=== PATIENT | female | born 1975 | race African-American/Black ===

== ENCOUNTER 2021-09-23 13:38 | Emergency (ER) | payer OTHER ==
[~2021-09-23] VITALS: Ht 160 cm; Wt 112.5 kg
[2021-09-23 14:56] LABS: BASOPHIL 0.6 % (0-2); EOSINOPHIL 1.8 % (0-5); HCT 41.3 % (37.0-47.0); HGB 13.8 g/dl (12.5-16.0); LYMPHOCYTE 24.2 % (15-48); MCH 28.3 pg (25.0-31.0); MCHC 33.4 g/dL (32.0-36.0); MCV 84.8 fL (78.0-100.0); MONOCYTE 7.7 % (0-12); MPV 11.4 fL (6.0-9.5); NEUTROPHIL 65.4 % (41-80); NRBC 0; PLT 264 K/uL (150-400); RBC 4.87 M/uL (4.20-5.40); RDW 13.8 % (11.5-14.0); WBC 9.1 K/uL (4.0-10.5)
[2021-09-23 15:00] LABS: INR 1.04 (0.9-1.2)
[2021-09-23 15:01] LABS: PTT 26.8 SECONDS (24.4-34.7)
[2021-09-23 15:13] LABS: ALBUMIN 3.7 g/dL (3.4-5.0); BILIRUBIN - TOTAL 0.3 mg/dL (0.2-1.0); BUN/CREAT RATIO (CALC) 14.8 RATIO; CREATININE 0.88 mg/dL (0.51-0.95); GLOBULIN (CALCULATION) 3.6 g/dL; POTASSIUM 3.3 mmol/L (3.5-5.1); TOTAL PROTEIN 7.3 g/dL (6.4-8.2)
== END 2021-09-23 18:00 | disposition home or self-care (01) ==
LOC: FER 13:38
PROVIDERS: Emergency Medicine
DX: R07.89 Other chest pain (principal); E11.9 Type 2 diabetes mellitus without complications; I10 Essential (primary) hypertension; Z88.8 Allergy status to other drugs, medicaments and biological substances; Z79.899 Other long term (current) drug therapy
CPT/HCPCS: 36415; 71045; 80053; 84484; 85025; 85610; 85730; 93005